=== PATIENT | male | born 1985 | race American Indian/Alaskan Native ===

== ENCOUNTER 2020-12-07 10:08 | Inpatient (IN) | payer OTHER ==
[2020-12-07 11:03] LABS: Bilirubin,Urine NEG (Negative); Blood,Urine NEG (Negative); Color,Urine Yellow (Yellow); Mucus,Urine 1+ /HPF; Protein,Urine <15 mg/dL mg/dL (Negative); Urobilinogen,Urine < 2.0 mg/dL (<2.0)
--- NOTE | 2020-12-07 12:19 | Emergency Department Report ---
Blank Doc - Documentation Documentation: 35-year-old male that presents with generalized abdominal pain with n/v. Stated has been vomiting bright red blood for 1 day. 1- This initial assessment/diagnostic orders/clinical plan/ treatment(s) is/are subject to change based on pt's health status, clinical progression and re- assessment by fellow clinical providers in the ED. Further treatment and workup at subsequent clinical provers discretion. Patient/guardians urged not to elope from ED as their condition may be serious if not clinically assessed and managed. 2-labs 3-UA
[2020-12-07] MEDS ORDERED: ONDANSETRON 4 MG/2 ML INJ IV ONE ×2 (12:54→14:51)
[2020-12-07] MEDS ORDERED: PANTOPRAZOLE 40 MG INJ IV ONE (12:54)
--- NOTE | 2020-12-07 13:11 | Emergency Department Report ---
HPI - General Chief Complaint: Abdominal Pain Time Seen by Provider: 12/07/20 12:15 - HPI HPI: This is a 35-year-old -Bel[place]an male presents to the emergency department with complaint of nausea, vomiting and generalized abdominal pain that has been going on since last night. The patient has noticed some blood in his vomit as well. Patient says that this set of symptoms has happened to him 2 times previously and he was diagnosed with "gastro something." He has not taken anything for his symptoms prior to presentation. He denies any fever, diarrhea, constipation, shortness of breath, chest pain. No recent travel or sick contacts at home. ED Past Medical Hx - Past Medical History Previous Medical History?: No - Surgical History Additional Surgical History: KNEE - Social History Smoking Status: Never Smoker Substance Use Type: Marijuana - Medications Home Medications: Home Medications Medication Instructions Recorded Confirmed Last Taken Type Ondansetron [Zofran Odt] 4 mg PO Q8HR PRN #15 tab.rapdis 12/07/20 Unknown Rx ED Review of Systems ROS: Stated complaint: VOMING BLOOD Other details as noted in HPI Comment: All other systems reviewed and negative Constitutional: denies: chills, fever Eyes: denies: eye pain, vision change ENT: denies: ear pain, throat pain Respiratory: denies: cough, shortness of breath Cardiovascular: denies: chest pain, palpitations Gastrointestinal: abdominal pain, nausea, vomiting Genitourinary: denies: dysuria, discharge Musculoskeletal: denies: joint swelling, arthralgia Skin: denies: rash, lesions Neurological: denies: headache, weakness Physical Exam - Physical Exam Vital Signs: Vital Signs 12/07/20 10:23 Temperature 98.5 F Pulse Rate 69 Respiratory 18 Rate Blood Pressure 116/80 O2 Sat by Pulse 99 Oximetry Physical Exam: GENERAL: Patient is actively retching. HENT: Normocephalic. Atraumatic. Patient has moist mucous membranes. EYES: Extraocular motions are intact. NECK: Supple. Trachea is midline. CHEST/LUNGS: Clear to auscultation. There is no respiratory distress noted. HEART/CARDIOVASCULAR: Regular. There is no tachycardia. There is no murmur. ABDOMEN: Abdomen is soft. Mild generalized abdominal tenderness to palpation. No guarding. Patient has normal bowel sounds. There is no abdominal distention. SKIN: Skin is warm and dry. NEURO: The patient is awake, alert, and oriented. The patient is cooperative. The patient has no focal neurologic deficits. Normal speech. MUSCULOSKELETAL: There is no tenderness or deformity. There is no limitation range of motion. ED Course Vital Signs 12/07/20 10:23 Temperature 98.5 F Pulse Rate 69 Respiratory 18 Rate Blood Pressure 116/80 O2 Sat by Pulse 99 Oximetry ED Medical Decision Making - Lab Data Result diagrams: 12/08/20 05:32 12/07/20 12:59 Lab Results 12/07/20 12/07/20 12/07/20 Range/Units 12:59 12:59 Unknown WBC 11.2 H (4.5-11.0) K/mm3 RBC 4.66 (3.65-5.03) M/mm3 Hgb 14.7 (11.8-15.2) gm/dl Hct 43.3 (35.5-45.6) % MCV 93 (84-94) fl MCH 32 (28-32) pg MCHC 34 (32-34) % RDW 12.7 L (13.2-15.2) % Plt Count 324 (140-440) K/mm3 Lymph % (Auto) 19.2 (13.4-35.0) % [place] % (Auto) 4.0 (0.0-7.3) % Eos % (Auto) 0.0 (0.0-4.3) % Baso % (Auto) 0.7 (0.0-1.8) % Lymph # (Auto) 2.2 (1.2-5.4) K/mm3 [place] # (Auto) 0.4 (0.0-0.8) K/mm3 Eos # (Auto) 0.0 (0.0-0.4) K/mm3 Baso # (Auto) 0.1 (0.0-0.1) K/mm3 Seg Neutrophils % 76.1 H (40.0-70.0) % Seg Neutrophils # 8.5 H (1.8-7.7) K/mm3 Sodium 137 (137-145) mmol/L Potassium 4.0 (3.6-5.0) mmol/L Chloride 99.7 (98-107) mmol/L Carbon Dioxide 21 L (22-30) mmol/L Anion Gap 20 mmol/L BUN 10 (9-20) mg/dL Creatinine 1.1 (0.8-1.3) mg/dL Estimated GFR > 60 ml/min BUN/Creatinine Ratio 9 % Glucose 153 H (75-100) mg/dL Calcium 9.1 (8.4-10.2) mg/dL Total Bilirubin 0.90 (0.1-1.2) mg/dL AST 26 (5-40) units/L ALT 21 (7-56) units/L Alkaline Phosphatase 70 (35-129) units/L Total Protein 7.6 (6.3-8.2) g/dL Albumin 4.7 (3.9-5) g/dL Albumin/Globulin Ratio 1.6 % Lipase 16 (13-60) units/L Urine Color Yellow (Yellow) Urine Turbidity Clear (Clear) Urine pH 6.0 (5.0-7.0) Ur Specific [place] 1.020 (1.003-1.030) Urine Protein <15 mg/dl (Negative) mg/dL Urine Glucose (UA) Neg (Negative) mg/dL Urine Ketones 20 (Negative) mg/dL Urine Blood Neg (Negative) Urine Nitrite Neg (Negative) Urine Bilirubin Neg (Negative) Urine Urobilinogen < 2.0 (<2.0) mg/dL Ur Leukocyte Esterase Neg (Negative) Urine WBC (Auto) 5.0 (0.0-6.0) /HPF Urine RBC (Auto) 2.0 (0.0-6.0) /HPF Urine Mucus 1+ /HPF - Radiology Data Radiology results: image reviewed interpreted by me: Abdominal x-ray shows nonspecific nonobstructive bowel gas. - Medical Decision Making This patient presents with nausea, vomiting and abdominal pain that started last night. He has a previous history of gastroparesis. Labs have been mostly unremarkable. Abdominal x-ray shows nonspecific nonobstructive bowel gas, and no free air. The patient presents with copious vomiting/retching. He was given 8 mg of Zofran and 10 mg of Reglan, as well as IV fluid resuscitation, but the patient continues to have nausea with vomiting. This was signed out to my colleague who tried other medications in an attempt to stop the nausea and vomiting and get t he patient to the point where he can orally rehydrate himself. However this appears unsuccessful and the patient was admitted to the hospital for further evaluation and treatment. Critical Care Time: No Critical care attestation.: If time is entered above; I have spent that time in minutes in the direct care of this critically ill patient, excluding procedure time. ED Disposition Clinical Impression: Gastroparesis Nausea & vomiting Qualifiers: Vomiting Intractability: intractable Abdominal pain Qualifiers: Abdominal location: generalized Qualified Code(s): R10.84 - Generalized abdominal pain Disposition: OP ADMIT IP TO THIS HOSP Is pt being admited?: Yes Condition: Stable
[2020-12-07] MEDS ORDERED: METOCLOPRAMIDE 10 MG/2 ML INJ IV ONE (13:12)
[2020-12-07] MEDS ORDERED: SODIUM CHLORIDE 0.9% 1000 ML 1,000 ML IV ONE (13:13)
[2020-12-07 13:31] LABS: Basophils # (Auto) 0.1 K/mm3 (0.0-0.1); Basophils % (Auto) 0.7 % (0.0-1.8); Hematocrit 43.3 % (35.5-45.6); Hemoglobin 14.7 gm/dl (11.8-15.2); Lymphocytes # (Auto) 2.2 K/mm3 (1.2-5.4); Lymphocytes % (Auto) 19.2 % (13.4-35.0); Mean Corpuscular HGB Conc 34 % (32-34); Mean Corpuscular Volume 93 fl (84-94); Monocytes # (Auto) 0.4 K/mm3 (0.0-0.8); Platelet Count 324 K/mm3 (140-440); Red Blood Count 4.66 M/mm3 (3.65-5.03); Red Cell Distribution Width 12.7 % (13.2-15.2)
[2020-12-07 13:49] LABS: Alanine Aminotransferase 21 units/L (7-56); Albumin 4.7 g/dL (3.9-5); BUN/Creatinine Ratio 9; Blood Urea Nitrogen 10 mg/dL (9-20); Calcium 9.1 mg/dL (8.4-10.2); Hemolysis Index 78
--- NOTE | 2020-12-07 14:06 | XRay Report ---
ABDOMEN 2 VIEW(S) INDICATION / CLINICAL INFORMATION: Abd pain. COMPARISON: None available. FINDINGS: TUBES / LINES: None. BOWEL GAS PATTERN/EXTRALUMINAL GAS: No significant abnormality. No pneumatosis or signs of free air. ADDITIONAL FINDINGS: No significant additional findings. IMPRESSION: 1. No acute findings. Signer Name: Jose Ochoa MD Signed: 12/07/2020 2:01 PM Workstation Name: [id number]
[2020-12-07] MEDS ORDERED: HALOPERIDOL LACTATE 5 MG/1 ML INJ IV ONE (16:16)
[2020-12-07] MEDS ORDERED: KETAMINE 500 MG/5 ML VIAL MDV IV ONE (19:22)
[2020-12-07] MEDS ORDERED: ACETAMINOPHEN 325 MG TAB PO PRN (22:47)
[2020-12-07] MEDS ORDERED: PROMETHAZINE 25 MG RECT SUPP PR PRN (22:48)
--- NOTE | 2020-12-07 22:53 | History and Physical Report ---
History of Present Illness Date of examination: 12/07/20 Date of admission: 12/07/2020 Chief complaint: intractable n/v, hematemesis, abdominal pain History of present illness: 35-year-old -Slovenian male who admits to recreational marijuana use with no significant past medical history [facility] with complaints intractable nausea vomiting, and abdominal pain. Patient states has been unable to keep anything down due to intractable nausea and vomiting x2 days. Endorses one episode of blood tinged emesis, and diarrhea x2 episodes. Additionally c omplains of generalized cramping 7/10 abdominal pain. Patient states he had similar symptoms before and was diagnosed with gastroparesis. During his previous episode his symptoms took approximately 1 week to resolve. He decided to come in the ED for further evaluation and treatment . Denies fever, chills, cough, hemoptysis, hematuria, melena, hematochezia, constipation, or recent sick contacts. Past History Past Medical History: other (Denies past medical history) Past Surgical History: Other (Knee surgery) Social history: single, Lives alone (cousin), smoking (Marijuana) Family history: other (Denies family medical history) Medications and Allergies Allergies Allergy/AdvReac Type Severity Reaction Status Date / Time NSAIDS (Non-Steroidal AdvReac Unknown Verified 12/07/20 10:22 Anti-Inflamma Home Medications Medication Instructions Recorded Confirmed Last Taken Type Ondansetron [Zofran Odt] 4 mg PO Q8HR PRN #15 tab.rapdis 12/07/20 Unknown Rx Active Meds: Active Medications Acetaminophen (Acetaminophen 325 Mg Tab) 650 mg PO Q4H PRN PRN Reason: Pain MILD(1-3)/Fever >100.5/JOSHI Dextrose/Sodium Chloride (D5/0.45ns) 1,000 mls @ 100 mls/hr IV DIRECT BHAVIK Stop: 12/08/20 12:00 Metoclopramide HCl (Metoclopramide 10 Mg/2 Ml Inj) 10 mg IV Q6H PRN PRN Reason: Nausea And Vomiting Morphine Sulfate (Morphine 2 Mg/1 Ml Inj) 2 mg IV Q3H PRN PRN Reason: Pain, Moderate (4-6) Ondansetron HCl (Ondansetron 4 Mg/2 Ml Inj) 4 mg IV Q6H PRN PRN Reason: Nausea And Vomiting Promethazine HCl (Promethazine 25 Mg Rect Supp) 25 mg [place] Q6H PRN PRN Reason: N/V IF NPO AND NO IV ACCESS Sodium Chloride (Sodium Chloride 0.9% 10 Ml Flush Syringe) 10 ml IV BID BHAVIK Sodium Chloride (Sodium Chloride 0.9% 10 Ml Flush Syringe) 10 ml IV PRN PRN PRN Reason: LINE FLUSH Review of Systems All systems: negative (As noted in HPI) Exam - Physical Exam Narrative exam: Physical exam General appearance: Present: No acute distress, alert and oriented 3, well- nourished, adult -Slovenian male - EENT Eyes: Present: PERRL, EOM intact ENT: hearing intact, normal dentition - Neck Neck: Present: supple, normal ROM - Respiratory Respiratory effort: Non-labored Respiratory: Clear throughout - Cardiovascular Heart rate:80(bpm) Rhythm: Sinus Heart Sounds: Present: S1 & S2. Absent: rub, click - Extremities Extremities: no ischemia, pulses intact, - Peripheral Assessment Peripheral Pulses: within normal limits - Abdominal General gastrointestinal: soft, non-tender, normal bowel sounds - Integumentary Integumentary: Present: warm, dry - Musculoskeletal Musculoskeletal: Able to move all extremities, normal gait -Neurological Neurological: CN II-XII intact - Psychiatric Psychiatric: cooperative - Constitutional Vitals: Temp Pulse Resp BP Pulse Ox 98.5 F 63 16 136/79 100 12/07/20 10:23 12/07/20 18:36 12/07/20 18:36 12/07/20 18:36 12/07/20 18:36 Results - Labs CBC & Chem 7: 12/07/20 12:59 12/07/20 12:59 Labs: Laboratory Last Values WBC 11.2 K/mm3 (4.5-11.0) H 12/07/20 12:59 RBC 4.66 M/mm3 (3.65-5.03) 12/07/20 12:59 Hgb 14.7 gm/dl (11.8-15.2) 12/07/20 12:59 Hct 43.3 % (35.5-45.6) 12/07/20 12:59 MCV 93 fl (84-94) 12/07/20 12:59 MCH 32 pg (28-32) 12/07/20 12:59 MCHC 34 % (32-34) 12/07/20 12:59 RDW 12.7 % (13.2-15.2) L 12/07/20 12:59 Plt Count 324 K/mm3 (140-440) 12/07/20 12:59 Lymph % (Auto) 19.2 % (13.4-35.0) 12/07/20 12:59 [place] % (Auto) 4.0 % (0.0-7.3) 12/07/20 12:59 Eos % (Auto) 0.0 % (0.0-4.3) 12/07/20 12:59 Baso % (Auto) 0.7 % (0.0-1.8) 12/07/20 12:59 Lymph # (Auto) 2.2 K/mm3 (1.2-5.4) 12/07/20 12:59 [place] # (Auto) 0.4 K/mm3 (0.0-0.8) 12/07/20 12:59 Eos # (Auto) 0.0 K/mm3 (0.0-0.4) 12/07/20 12:59 Baso # (Auto) 0.1 K/mm3 (0.0-0.1) 12/07/20 12:59 Seg Neutrophils % 76.1 % (40.0-70.0) H 12/07/20 12:59 Seg Neutrophils # 8.5 K/mm3 (1.8-7.7) H 12/07/20 12:59 Sodium 137 mmol/L (137-145) 12/07/20 12:59 Potassium 4.0 mmol/L (3.6-5.0) 12/07/20 12:59 Chloride 99.7 mmol/L (98-107) 12/07/20 12:59 Carbon Dioxide 21 mmol/L (22-30) L 12/07/20 12:59 Anion Gap 20 mmol/L 12/07/20 12:59 BUN 10 mg/dL (9-20) 12/07/20 12:59 Creatinine 1.1 mg/dL (0.8-1.3) 12/07/20 12:59 Estimated GFR > 60 ml/min 12/07/20 12:59 BUN/Creatinine Ratio 9 % 12/07/20 12:59 Glucose 153 mg/dL (75-100) H 12/07/20 12:59 Calcium 9.1 mg/dL (8.4-10.2) 12/07/20 12:59 Total Bilirubin 0.90 mg/dL (0.1-1.2) 12/07/20 12:59 AST 26 units/L (5-40) 12/07/20 12:59 ALT 21 units/L (7-56) 12/07/20 12:59 Alkaline Phosphatase 70 units/L (35-129) 12/07/20 12:59 Total Protein 7.6 g/dL (6.3-8.2) 12/07/20 12:59 Albumin 4.7 g/dL (3.9-5) 12/07/20 12:59 Albumin/Globulin Ratio 1.6 % 12/07/20 12:59 Lipase 16 units/L (13-60) 12/07/20 12:59 Urine Color Yellow (Yellow) 12/07/20 Unknown Urine Turbidity Clear (Clear) 12/07/20 Unknown Urine pH 6.0 (5.0-7.0) 12/07/20 Unknown Ur Specific [place] 1.020 (1.003-1.030) 12/07/20 Unknown Urine Protein <15 mg/dl mg/dL (Negative) 12/07/20 Unknown Urine Glucose (UA) Neg mg/dL (Negative) 12/07/20 Unknown Urine Ketones 20 mg/dL (Negative) 12/07/20 Unknown Urine Blood Neg (Negative) 12/07/20 Unknown Urine Nitrite Neg (Negative) 12/07/20 Unknown Urine Bilirubin Neg (Negative) 12/07/20 Unknown Urine Urobilinogen < 2.0 mg/dL (<2.0) 12/07/20 Unknown Ur Leukocyte Esterase Neg (Negative) 12/07/20 Unknown Urine WBC (Auto) 5.0 /HPF (0.0-6.0) 12/07/20 Unknown Urine RBC (Auto) 2.0 /HPF (0.0-6.0) 12/07/20 Unknown Urine Mucus 1+ /HPF 12/07/20 Unknown - Diagnostic Impressions Diagnostic Impressions: Abdominal XR: FINDINGS: TUBES / LINES: None. BOWEL GAS PATTERN/EXTRALUMINAL GAS: No significant abnormality. No pneumatosis or signs of free air. ADDITIONAL FINDINGS: No significant additional findings. IMPRESSION: 1. No acute findings. Assessment and Plan Assessment and plan: Intractable nausea and vomiting -C/o n/v x2 days -NPO, advance as tolerated -IVF -On antiemetics -Supportive care Gastroparesis -Reports history of gastroparesis -If no improvement in the next 24 hours may consider starting antibiotics and GI consult -Abdominal x-ray negative -On antiemetics Acute abdominal pain -Likely due to gastroparesis -Supportive care History of marijuana use -??marijuana induced hyperemesis -Reports quit smoking marijuana 4 days ago -UDS pending -Counseled for cessation Leukocytosis -Mild @11.2 -?? Inflammatory response -Cultures pending -Hold off on antibiotics for now, as stated above may consider starting if no improvement with gastroparesis in the next 24 hours DVT & GI PPX -on Protonix -SCD's VTE prophylaxis?: Mechanical Plan of care discussed with patient/family: Yes
[2020-12-07] MEDS ORDERED: D5W/0.45% NACL 1,000 ML IV SCH (23:00)
[2020-12-08] MEDS: ONDANSETRON 4 MG/2 ML INJ IV PRN ×3 (05:06→21:51)
[2020-12-08] MEDS: METOCLOPRAMIDE 10 MG/2 ML INJ IV PRN ×2 (05:06→17:53)
[2020-12-08 06:04] LABS: Basophils % (Auto) 0.1 % (0.0-1.8); Hematocrit 40.7 % (35.5-45.6); Hemoglobin 13.4 gm/dl (11.8-15.2); Lymphocytes % (Auto) 6.2 % (13.4-35.0); Mean Corpuscular HGB Conc 33 % (32-34); Mean Corpuscular Volume 92 fl (84-94); Monocytes # (Auto) 1.1 K/mm3 (0.0-0.8); Monocytes % (Auto) 6.5 % (0.0-7.3); Platelet Count 299 K/mm3 (140-440); Red Blood Count 4.42 M/mm3 (3.65-5.03); Red Cell Distribution Width 12.3 % (13.2-15.2)
[2020-12-08] MEDS: PANTOPRAZOLE 40 MG INJ IV SCH ×2 (10:50→21:51)
--- NOTE | 2020-12-08 14:04 | Progress Note ---
Subjective Date of service: 12/08/20 Interval history: intractable n/v, hematemesis, abdominal pain History of present illness: 35-year-old -Turkmen male who admits to recreational marijuana use with no significant past medical history presents to [facility] ED with complaints intractable nausea vomiting, and abdominal pain. Patient states has been unable to keep anything down due to intractable nausea and vomiting x2 days. Endorses one episode of blood tinged emesis, and diarrhea x2 episodes. Additionally complains of generalized cramping 7/10 abdominal pain. Patient states he had similar symptoms before and was diagnosed with gastroparesis. During his previous episode his symptoms took approximately 1 week to resolve. He decided to come in the ED for further evaluation and treatment . 12/08 patient is alert and oriented and states that his nausea and vomiting is better. Last emesis at 3 AM today. We will start on clear liquids and advance as tolerated. Lab results reviewed. Blood cultures results pending. Has a low-grade temp of 99.2 denies chest pain, shortness of breath, fever or chills. Denies abdominal pain or dysuria. Assessment and plan: Intractable nausea and vomiting -Improving/no further episodes since late last night Start on clear liquids -IVF -On antiemetics -Supportive care Gastroparesis -Reports history of gastroparesis -Continue Reglan IV as needed -Abdominal x-ray negative -On antiemetics Acute abdominal pain Resolved -Supportive care History of marijuana use -??marijuana induced hyperemesis -Reports quit smoking marijuana 4 days ago -UDS pending -Counseled for cessation Leukocytosis -WBC count increased from 11.2-16.7 this morning -?? SIRS versus sepsis -Blood cultures results pending -Check lactic acid levels and procalcitonin -We will start the patient on IV antibiotic empirically as the patient also has low-grade temp Hyperglycemia A1c 4.4 DVT & GI PPX -on Protonix -SCD's Objective - Constitutional Vitals: Vital Signs - 12hr 12/08/20 12/08/20 12/08/20 03:30 04:47 05:18 Temperature 99.2 F Pulse Rate 68 54 L 54 L Respiratory 16 18 Rate Blood Pressure 137/91 Blood Pressure 138/71 [Left] O2 Sat by Pulse 100 96 Oximetry 12/08/20 12/08/20 12/08/20 08:50 08:56 12:06 Temperature 99.3 F 98.7 F Pulse Rate 69 83 Respiratory 18 18 Rate Blood Pressure 142/87 147/95 Blood Pressure [Left] O2 Sat by Pulse 99 98 98 Oximetry 12/08/20 13:00 Temperature Pulse Rate 61 Respiratory Rate Blood Pressure Blood Pressure [Left] O2 Sat by Pulse Oximetry General appearance: Present: well-nourished - EENT Eyes: PERRL, EOM intact ENT: hearing intact, clear oral mucosa - Neck Neck: supple, normal ROM - Respiratory Respiratory effort: normal Respiratory: bilateral: CTA - Cardiovascular Rhythm: regular Heart Sounds: Present: S1 & S2 Extremities: No edema - Gastrointestinal General gastrointestinal: Present: soft, non-tender Rectal Exam: deferred - Genitourinary Male genitourinary: deferred - Integumentary Integumentary: clear - Musculoskeletal Musculoskeletal: strength equal bilaterally - Neurologic Neurologic: no focal deficits - Psychiatric Psychiatric: appropriate mood/affect - Labs CBC & Chem 7: 12/08/20 05:32 12/07/20 12:59 Labs: Abnormal lab results 12/07/20 12/08/20 Range/Units 12:59 05:32 WBC 16.7 H (4.5-11.0) K/mm3 RDW 12.3 L (13.2-15.2) % Lymph % (Auto) 6.2 L (13.4-35.0) % Lymph # (Auto) 1.0 L (1.2-5.4) K/mm3 [place] # (Auto) 1.1 H (0.0-0.8) K/mm3 Seg Neutrophils % 87.2 H (40.0-70.0) % Seg Neutrophils # 14.6 H (1.8-7.7) K/mm3 Carbon Dioxide 21 L (22-30) mmol/L Glucose 153 H (75-100) mg/dL
[2020-12-08] MEDS: D5W/0.45% NACL 1,000 ML IV SCH (17:54)
[2020-12-08] MEDS: MORPHINE 2 MG/1 ML INJ IV PRN (21:51)
[2020-12-09] MEDS: MORPHINE 2 MG/1 ML INJ IV PRN ×3 (01:30→18:41)
[2020-12-09 05:56] LABS: Basophils % (Auto) 0.2 % (0.0-1.8); Hematocrit 39.9 % (35.5-45.6); Hemoglobin 13.5 gm/dl (11.8-15.2); Lymphocytes # (Auto) 1.5 K/mm3 (1.2-5.4); Mean Corpuscular HGB Conc 34 % (32-34); Mean Corpuscular Volume 93 fl (84-94); Monocytes # (Auto) 1.2 K/mm3 (0.0-0.8); Monocytes % (Auto) 8.1 % (0.0-7.3); Platelet Count 273 K/mm3 (140-440); Red Blood Count 4.31 M/mm3 (3.65-5.03); Red Cell Distribution Width 12.7 % (13.2-15.2)
[2020-12-09 06:12] LABS: BUN/Creatinine Ratio 11; Blood Urea Nitrogen 12 mg/dL (9-20); Calcium 8.9 mg/dL (8.4-10.2); Hemolysis Index 4
[2020-12-09] MEDS ORDERED: POTASSIUM CHLORIDE ER 20 MEQ TAB PO SCH (08:30)
[2020-12-09] MEDS: PANTOPRAZOLE 40 MG INJ IV SCH (09:41)
[2020-12-09] MEDS: METOCLOPRAMIDE 10 MG/2 ML INJ IV PRN (09:41)
[2020-12-09] MEDS: D5W/0.45% NACL 1,000 ML IV SCH (09:47)
--- NOTE | 2020-12-09 09:49 | Progress Note ---
Subjective Date of service: 12/09/20 Interval history: intractable n/v, hematemesis, abdominal pain History of present illness: 35-year-old -[place] male who admits to recreational marijuana use with no significant past medical history presents to [facility] ED with complaints intractable nausea vomiting, and abdominal pain. Patient states has been unable to keep anything down due to intractable nausea and vomiting x2 days. Endorses one episode of blood tinged emesis, and diarrhea x2 episodes. Additionally complains of generalized cramping 7/10 abdominal pain. Patient states he had similar symptoms before and was diagnosed with gastroparesis. During his previous episode his symptoms took approximately 1 week to resolve. He decided to come in the ED for further evaluation and treatment . 12/08 patient is alert and oriented and states that his nausea and vomiting is better. Last emesis at 3 AM today. We will start on clear liquids and advance as tolerated. Lab results reviewed. Blood cultures results pending. Has a low-grade temp of 99.2 denies chest pain, shortness of breath, fever or chills. Denies abdominal pain or dysuria. 12/09 patient is alert and oriented. Complains of persistent nausea and vomiting. Also complains of nonexertional chest pain across the chest. Denies fever or chills. Denies shortness of breath or exertional chest pain. Lab results aureliano carcamo Assessment and plan: Intractable nausea and vomiting -We will request GI consult -We will order nuclear medicine gastric emptying scan Continue clear liquids -IVF -On antiemetics -Supportive care Gastroparesis -Reports history of gastroparesis -Continue Reglan IV as needed -Abdominal x-ray negative -On antiemetics -We will order nuclear medicine gastric emptying scan Acute abdominal pain Resolved -Supportive care History of marijuana use -??marijuana induced hyperemesis -Reports quit smoking marijuana 4 days ago -UDS pending -Counseled for cessation Leukocytosis -WBC count increased from 11.2-16.7 > 15 k this morning -?? SIRS versus sepsis -Blood cultures results -no growth in 24 hours - lactic acid levels and procalcitonin ordered-results pending -Continue empiric IV antibiotic empirically as the patient also has low-grade temp Hyperglycemia A1c 4.4 DVT & GI PPX -on Protonix -SCD's Objective - Constitutional Vitals: Vital Signs - 12hr 12/08/20 12/08/20 12/09/20 21:51 22:21 01:17 Temperature 98.0 F Pulse Rate 66 Respiratory 20 18 18 Rate Blood Pressure 135/89 O2 Sat by Pulse 98 Oximetry 12/09/20 12/09/20 12/09/20 01:30 03:53 07:37 Temperature 98.6 F Pulse Rate 82 82 Respiratory 20 18 Rate Blood Pressure 146/92 O2 Sat by Pulse 100 Oximetry 12/09/20 07:50 Temperature 98.2 F Pulse Rate 63 Respiratory 20 Rate Blood Pressure 122/93 O2 Sat by Pulse 98 Oximetry General appearance: Present: no acute distress, well-nourished - EENT Eyes: PERRL, EOM intact ENT: hearing intact - Neck Neck: supple, normal ROM - Respiratory Respiratory effort: normal Respiratory: bilateral: CTA - Cardiovascular Rhythm: regular Heart Sounds: Present: S1 & S2 Extremities: No edema - Gastrointestinal General gastrointestinal: Present: soft, non-tender Rectal Exam: deferred - Genitourinary Male genitourinary: deferred - Musculoskeletal Musculoskeletal: strength equal bilaterally - Neurologic Neurologic: no focal deficits, moves all extremities - Psychiatric Psychiatric: appropriate mood/affect - Labs CBC & Chem 7: 12/09/20 05:12 12/09/20 05:12 Labs: Abnormal lab results 12/08/20 12/09/20 12/09/20 Range/Units 13:07 05:12 05:12 WBC 15.0 H (4.5-11.0) K/mm3 RDW 12.7 L (13.2-15.2) % Lymph % (Auto) 10.0 L (13.4-35.0) % [place] % (Auto) 8.1 H (0.0-7.3) % [place] # (Auto) 1.2 H (0.0-0.8) K/mm3 Seg Neutrophils % 81.7 H (40.0-70.0) % Seg Neutrophils # 12.2 H (1.8-7.7) K/mm3 Sodium 136 L (137-145) mmol/L Potassium 3.5 L (3.6-5.0) mmol/L Chloride 96.4 L (98-107) mmol/L Glucose 121 H (75-100) mg/dL Lactic Acid 2.30 H* (0.7-2.0) mmol/L
[2020-12-09] MEDS: ONDANSETRON 4 MG/2 ML INJ IV PRN ×2 (15:38→21:24)
--- NOTE | 2020-12-09 16:47 | Gastroenterology Consultation ---
History of Present Illness - Reason for Consult Consult date: 12/09/20 nausea/vomiting Requesting physician: ALEXSANDRA MACEDO - History of Present Illness This is a 35 yo male with recreational marijauna use admitted on 12/07/2020 for intractable nausea/vomiting x 2 days. GI consulted for N/V. Patient reports having similar episodes in the past with admission at OSH in 2018 and symptoms could last for about 1 week. Was told to stop marijauna in the past. Last use 1 week ago. Reports epigastric pain along with diarrhea x 2 days. No blood in the stool or melena. No prior EGD or colonoscopy. Work up so far with normal lipase, normal KUB. Patient has been on reglan and zofran prn and placed on clear liquids. Reports feeling slightly improved today and keep clears down. medication list reviewed. Past History Past Medical History: other (Denies past medical history) Past Surgical History: Other (Knee surgery) Social history: single, Lives alone (cousin), smoking (Marijuana) Family history: other (Denies family medical history) Medications and Allergies Allergies Allergy/AdvReac Type Severity Reaction Status Date / Time NSAIDS (Non-Steroidal AdvReac Unknown Verified 12/07/20 10:22 Anti-Inflamma Home Medications Medication Instructions Recorded Confirmed Last Taken Type Ondansetron [Zofran Odt] 4 mg PO Q8HR PRN #15 tab.rapdis 12/07/20 Unknown Rx Active Meds: Active Medications Acetaminophen (Acetaminophen 325 Mg Tab) 650 mg PO Q4H PRN PRN Reason: Pain MILD(1-3)/Fever >100.5/JOSHI Levofloxacin/Dextrose (Levaquin 500mg/100ml) 500 mg in 100 mls @ 100 mls/hr IV Q24H BHAVIK; Protocol Last Admin: 12/09/20 09:47 Dose: 100 mls/hr Documented by: Dextrose/Sodium Chloride (D5/0.45ns) 1,000 mls @ 100 mls/hr IV DIRECT BHAVIK Last Admin: 12/09/20 09:47 Dose: 100 mls/hr Documented by: Metoclopramide HCl (Metoclopramide 10 Mg/2 Ml Inj) 10 mg IV Q6H PRN PRN Reason: Nausea And Vomiting Last Admin: 12/09/20 09:41 Dose: 10 mg Documented by: Ondansetron HCl (Ondansetron 4 Mg/2 Ml Inj) 4 mg IV Q6H PRN PRN Reason: Nausea And Vomiting Last Admin: 12/09/20 15:38 Dose: 4 mg Documented by: Pantoprazole Sodium (Pantoprazole 40 Mg Inj) 40 mg IV DAILY [facility] Promethazine HCl (Promethazine 25 Mg Rect Supp) 25 mg ID Q6H PRN PRN Reason: N/V IF NPO AND NO IV ACCESS Sodium Chloride (Sodium Chloride 0.9% 10 Ml Flush Syringe) 10 ml IV BID [facility] Last Admin: 12/09/20 09:41 Dose: 10 ml Documented by: Sodium Chloride (Sodium Chloride 0.9% 10 Ml Flush Syringe) 10 ml IV PRN PRN PRN Reason: LINE FLUSH Last Admin: 12/08/20 05:06 Dose: 10 ml Documented by: Review of Systems - Review of Systems All systems: negative Constitutional: no weight loss, no weight gain Cardiovascular: no chest pain Gastrointestinal: abdominal pain, nausea, vomiting, loss of appetite, early satiety, no constipation, no hematemesis, no coffee ground emesis, no hematochezia Neurological: weakness Psychiatric: no anxiety Endocrine: no cold intolerance Hematologic/Lymphatic: no easy bruising Allergic/Immunologic: no wheezing Exam - Constitutional Vital Signs: Temp Pulse Resp BP Pulse Ox 98.2 F 63 20 122/93 98 12/09/20 07:50 12/09/20 07:50 12/09/20 07:50 12/09/20 07:50 12/09/20 07:50 General appearance: no acute distress - EENT ENT: hearing intact - Neck Neck: supple - Respiratory Respiratory effort: normal - Cardiovascular Rhythm: regular Heart Sounds: Present: S1 & S2 - Gastrointestinal General gastrointestinal: Present: soft, non-tender, non-distended - Integumentary Integumentary: Present: clear, warm - Neurologic Neurological: alert and oriented x3 - Labs CBC & Chem 7: 12/09/20 05:12 12/09/20 05:12 Lab Results: Laboratory Results - last 24 hr 12/08/20 12/09/20 12/09/20 15:14 05:12 05:12 WBC 15.0 H RBC 4.31 Hgb 13.5 Hct 39.9 MCV 93 MCH 31 MCHC 34 RDW 12.7 L Plt Count 273 Lymph % (Auto) 10.0 L [place] % (Auto) 8.1 H Eos % (Auto) 0.0 Baso % (Auto) 0.2 Lymph # (Auto) 1.5 [place] # (Auto) 1.2 H Eos # (Auto) 0.0 Baso # (Auto) 0.0 Seg Neutrophils % 81.7 H Seg Neutrophils # 12.2 H Sodium Potassium Chloride Carbon Dioxide Anion Gap BUN Creatinine Estimated GFR BUN/Creatinine Ratio Glucose Lactic Acid 1.70 Calcium Procalcitonin < 0.05 12/09/20 05:12 WBC RBC Hgb Hct MCV MCH MCHC RDW Plt Count Lymph % (Auto) [place] % (Auto) Eos % (Auto) Baso % (Auto) Lymph # (Auto) [place] # (Auto) Eos # (Auto) Baso # (Auto) Seg Neutrophils % Seg Neutrophils # Sodium 136 L Potassium 3.5 L Chloride 96.4 L Carbon Dioxide 27 Anion Gap 16 BUN 12 Creatinine 1.1 Estimated GFR > 60 BUN/Creatinine Ratio 11 Glucose 121 H Lactic Acid Calcium 8.9 Procalcitonin Assessment and Plan This is a 35 yo male with recreational marijauna use admitted on 12/07/2020 for intractable nausea/vomiting x 2 days. GI consulted for N/V. # Nausea/vomiting - ddx including marijauna induced hyperemesis, cyclic vomiting syndrome, gastroparesis, GERD vs biliary etiology. - normal lipase and LFTs - keep clears today - cont with reglan and zofran prn - add protonix - advance diet slowly - advised to quit marijauna - if persistent nausea/vomiting, plan for EGD on Friday. - Patient Problems (1) Abdominal pain Current Visit: Yes Status: Acute Qualifiers: Abdominal location: generalized Qualified Code(s): R10.84 - Generalized abdominal pain (2) Nausea & vomiting Current Visit: Yes Status: Acute Qualifiers: Vomiting Intractability: intractable
[2020-12-10] MEDS ORDERED: ALUM-MAG HYDROXIDE-SIMETHICONE 200-200-20MG/5ML ORAL LIQD 30 ML PO ONE (00:21)
[2020-12-10] MEDS: MORPHINE 2 MG/1 ML INJ IV PRN ×2 (00:46→14:32)
[2020-12-10] MEDS: METOCLOPRAMIDE 10 MG/2 ML INJ IV PRN (00:46)
[2020-12-10] MEDS: D5W/0.45% NACL 1,000 ML IV SCH (03:49)
[2020-12-10] MEDS: ONDANSETRON 4 MG/2 ML INJ IV PRN (03:54)
[2020-12-10 06:45] LABS: Hematocrit 40.3 % (35.5-45.6); Hemoglobin 13.9 gm/dl (11.8-15.2); Mean Corpuscular HGB Conc 35 % (32-34); Mean Corpuscular Volume 91 fl (84-94); Platelet Count 295 K/mm3 (140-440); Red Blood Count 4.43 M/mm3 (3.65-5.03); Red Cell Distribution Width 12.2 % (13.2-15.2)
[2020-12-10 07:32] LABS: BUN/Creatinine Ratio 7; Blood Urea Nitrogen 8 mg/dL (9-20); Calcium 8.6 mg/dL (8.4-10.2); Hemolysis Index 0
[2020-12-10] MEDS: PANTOPRAZOLE 40 MG INJ IV SCH (10:11)
[2020-12-10] MEDS: POTASSIUM CHLORIDE 10 MEQ 10 MEQ/100 ML BAG IV SCH ×4 (10:11→14:31)
--- NOTE | 2020-12-10 11:24 | Progress Note ---
Subjective Date of service: 12/10/20 Interval history: intractable n/v, hematemesis, abdominal pain History of present illness: 35-year-old -[place] male who admits to recreational marijuana use with no significant past medical history presents to [facility] ED with complaints intractable nausea vomiting, and abdominal pain. Patient states has been unable to keep anything down due to intractable nausea and vomiting x2 days. Endorses one episode of blood tinged emesis, and diarrhea x2 episodes. Additionally complains of generalized cramping 7/10 abdominal pain. Patient states he had similar symptoms before and was diagnosed with gastroparesis. During his previous episode his symptoms took approximately 1 week to resolve. He decided to come in the ED for further evaluation and treatment . 12/08 patient is alert and oriented and states that his nausea and vomiting is better. Last emesis at 3 AM today. We will start on clear liquids and advance as tolerated. Lab results reviewed. Blood cultures results pending. Has a low-grade temp of 99.2 denies chest pain, shortness of breath, fever or chills. Denies abdominal pain or dysuria. 12/09 patient is alert and oriented. Complains of persistent nausea and vomiting. Also complains of nonexertional chest pain across the chest. Denies fever or chills. Denies shortness of breath or exertional chest pain. Lab results aureliano carcamo Assessment and plan: Intractable nausea and vomiting - GI consulted, -Reviewed GI note and discussed with Dr. Romo - will cancel nuclear medicine gastric emptying scan for now/possibly EGD on Friday as the patient continues to feel nauseous and intermittently throwing up although he says he feels better today Continue clear liquids -IVF -Continue antiemetics as needed -Clear liquids Gastroparesis -Patient reports history of gastroparesis -Continue Reglan IV as needed -Abdominal x-ray negative -On antiemetics Acute abdominal pain Resolved -Supportive care History of marijuana use -??marijuana induced hyperemesis -Reports quit smoking marijuana 4 days prior to admission -UDS pending -Counseled for cessation Leukocytosis -WBC count increased from 11.2-16.7 > 15 k > 14.9 this morning -?? SIRS versus sepsis -Blood cultures results -no growth in 24 hours - lactic acid levels and procalcitonin results reviewed -Continue empiric IV antibiotic empirically as the patient also has low-grade temp Hyperglycemia A1c 4.4 DVT & GI PPX -on Protonix -SCD's Objective - Constitutional Vitals: Vital Signs - 12hr 12/10/20 12/10/20 12/10/20 00:14 04:53 08:53 Temperature 97.8 F 98.0 F 98.0 F Pulse Rate 56 L 80 66 Respiratory 18 18 18 Rate Blood Pressure 146/101 120/79 138/93 O2 Sat by Pulse 98 96 94 Oximetry General appearance: Present: no acute distress, well-nourished - EENT Eyes: PERRL, EOM intact ENT: hearing intact - Neck Neck: supple, normal ROM - Respiratory Respiratory effort: normal Respiratory: bilateral: CTA - Cardiovascular Rhythm: regular Heart Sounds: Present: S1 & S2 Extremities: No edema - Gastrointestinal General gastrointestinal: Present: soft, non-tender Rectal Exam: deferred - Genitourinary Male genitourinary: deferred - Integumentary Integumentary: clear - Musculoskeletal Musculoskeletal: strength equal bilaterally - Neurologic Neurologic: moves all extremities - Psychiatric Psychiatric: appropriate mood/affect - Labs CBC & Chem 7: 12/10/20 05:21 12/10/20 05:21 Labs: Abnormal lab results 12/10/20 12/10/20 12/10/20 Range/Units 05:21 05:21 05:21 WBC 14.9 H (4.5-11.0) K/mm3 MCHC 35 H (32-34) % RDW 12.2 L (13.2-15.2) % Sodium 133 L (137-145) mmol/L Potassium 2.8 L* (3.6-5.0) mmol/L Chloride 94.2 L (98-107) mmol/L BUN 8 L (9-20) mg/dL Glucose 101 H (75-100) mg/dL Magnesium 1.40 L (1.7-2.3) mg/dL
[2020-12-10] MEDS ORDERED: MAGNESIUM SULFATE 1 GM in SODIUM CHLORIDE 0.9% 50 ML IV ONE (14:00)
--- NOTE | 2020-12-10 16:40 | Gastroenterology Progress Note ---
Assessment and Plan This is a 35 yo male with recreational marijauna use admitted on 12/07/2020 for intractable nausea/vomiting x 2 days. GI consulted for N/V. # Nausea/vomiting - ddx including marijauna induced hyperemesis, cyclic vomiting syndrome, gastrop aresis, GERD vs biliary etiology. - normal lipase and LFTs - keep clears but persistent nausea/vomiting. - cont with reglan and zofran prn - cont with protonix - advance diet slowly - advised to quit marijauna - will plan for EGD tomorrow. keep NPO MN. - if EGD negative, may need HIDA scan vs GES. - Patient Problems (1) Abdominal pain Current Visit: Yes Status: Acute Qualifiers: Abdominal location: generalized Qualified Code(s): R10.84 - Generalized abdominal pain (2) Nausea & vomiting Current Visit: Yes Status: Acute Qualifiers: Vomiting Intractability: intractable Subjective Date of service: 12/10/20 Interval history: patient reports persistent nausea and vomiting. Epigastric pain. Per nursing, patient is spitting up but not vomiting. Objective - Constitutional Vitals: Temp Pulse Resp BP Pulse Ox 98.0 F 62 18 138/93 94 12/10/20 08:53 12/10/20 12:00 12/10/20 08:53 12/10/20 08:53 12/10/20 08:53 General appearance: no acute distress - EENT Eyes: EOM intact ENT: hearing intact - Respiratory Respiratory effort: normal - Cardiovascular Rhythm: regular Heart Sounds: Present: S1 & S2 - Gastrointestinal General gastrointestinal: Present: soft, non-tender, non-distended - Integumentary Integumentary: Present: clear, warm - Neurologic Neurological: alert and oriented x3 - Labs CBC & Chem 7: 12/10/20 05:21 12/10/20 05:21 Labs: Laboratory Results - last 24 hr 12/10/20 12/10/20 12/10/20 05:21 05:21 05:21 WBC 14.9 H RBC 4.43 Hgb 13.9 Hct 40.3 MCV 91 MCH 32 MCHC 35 H RDW 12.2 L Plt Count 295 Sodium 133 L Potassium 2.8 L* Chloride 94.2 L Carbon Dioxide 28 Anion Gap 14 BUN 8 L Creatinine 1.1 Estimated GFR > 60 BUN/Creatinine Ratio 7 Glucose 101 H Calcium 8.6 Magnesium 1.40 L
[2020-12-11] MEDS: D5W/0.45% NACL 1,000 ML IV SCH (01:05)
[2020-12-11] MEDS: METOCLOPRAMIDE 10 MG/2 ML INJ IV PRN ×2 (04:44→16:33)
[2020-12-11] MEDS: MORPHINE 2 MG/1 ML INJ IV PRN ×4 (04:49→16:42)
[2020-12-11 06:56] LABS: BUN/Creatinine Ratio 8; Blood Urea Nitrogen 8 mg/dL (9-20); Calcium 8.2 mg/dL (8.4-10.2); Hemolysis Index 18
[2020-12-11] MEDS: POTASSIUM CHLORIDE 10 MEQ 10 MEQ/100 ML BAG IV SCH ×6 (09:04→17:51)
[2020-12-11] MEDS: PANTOPRAZOLE 40 MG INJ IV SCH (09:16)
[2020-12-11] MEDS: ONDANSETRON 4 MG/2 ML INJ IV PRN (09:16)
--- NOTE | 2020-12-11 11:27 | Progress Note ---
Assessment and Plan Assessment and plan: #Intractable nausea and vomiting -Continue clear liquids -Continue reglan -Plan for EGD per GI> will need GES or HIDA scan if negative. -GI recs appreciated. #Acute abdominal pain Resolved -Supportive care #History of marijuana use -??marijuana induced hyperemesis -Reports quit smoking marijuana 4 days prior to admission -Counseling provided #Leukocytosis -Likely SIRS. -Blood cultures results -no growth in 24 hours -Lactic acid levels and procalcitonin results reviewed -Complete antibiotics. #Hyperglycemia A1c 4.4 #DVT & GI PPX -on Protonix -SCD's History Interval history: 35-year-old -[place] male who admits to recreational marijuana use with no significant past medical history presents to [facility] ED with complaints intractable nausea vomiting, and abdominal pain. Patient states has been unable to keep anything down due to intractable nausea and vomiting x2 days. Endorses one episode of blood tinged emesis, and diarrhea x2 episodes. Additionally complains of generalized cramping 02/10 abdominal pain. Patient states he had similar symptoms before and was diagnosed with gastroparesis. During his previous episode his symptoms took approximately 1 week to resolve. He decided to come in the ED for further evaluation and treatment . 12/08 patient is alert and oriented and states that his nausea and vomiting is better. Last emesis at 3 AM today. We will start on clear liquids and advance as tolerated. Lab results reviewed. Blood cultures results pending. Has a low-grade temp of 99.2 denies chest pain, shortness of breath, fever or chills. Denies abdominal pain or dysuria. 12/09 patient is alert and oriented. Complains of persistent nausea and vomiting. Also complains of nonexertional chest pain across the chest. Denies fever or chills. Denies shortness of breath or exertional chest pain. Lab results reviewed 12/11. He is still having nausea. Plan for EGD per GI today. If negative, he will need GES or HIDA. Hospitalist Physical - Physical exam Narrative exam: VITAL SIGNS: Reviewed. GENERAL: Awake HEAD: No signs of head trauma. EYES: Pupils are equal. Extraocular motions intact. MOUTH: Oropharynx is normal. NECK: No adenopathy, no JVD. CHEST: Chest with diminished breath sounds bilaterally. No wheezes, rales, or rhonchi. CARDIAC: normal S1 and S2, without murmurs, gallops, or rubs. ABDOMEN: Soft, non tender and non distended. No rebound or guarding, and no masses palpated. Bowel Sounds normal. MUSCULOSKELETAL: No edema NEUROLOGIC EXAM: Alert and oriented x3. No focal neurologic deficits SKIN: No obvious lesions - Constitutional Vitals: Temp Pulse Resp BP Pulse Ox 98.0 F 63 18 147/99 100 12/11/20 04:59 12/11/20 04:59 12/11/20 04:59 12/11/20 04:59 12/11/20 04:59 Results - Labs CBC & Chem 7: 12/10/20 05:21 12/11/20 05:46 Labs: Laboratory Last Values WBC 14.9 K/mm3 (4.5-11.0) H 12/10/20 05:21 RBC 4.43 M/mm3 (3.65-5.03) 12/10/20 05:21 Hgb 13.9 gm/dl (11.8-15.2) 12/10/20 05:21 Hct 40.3 % (35.5-45.6) 12/10/20 05:21 MCV 91 fl (84-94) 12/10/20 05:21 MCH 32 pg (28-32) 12/10/20 05:21 MCHC 35 % (32-34) H 12/10/20 05:21 RDW 12.2 % (13.2-15.2) L 12/10/20 05:21 Plt Count 295 K/mm3 (140-440) 12/10/20 05:21 Lymph % (Auto) 10.0 % (13.4-35.0) L 12/09/20 05:12 [place] % (Auto) 8.1 % (0.0-7.3) H 12/09/20 05:12 Eos % (Auto) 0.0 % (0.0-4.3) 12/09/20 05:12 Baso % (Auto) 0.2 % (0.0-1.8) 12/09/20 05:12 Lymph # (Auto) 1.5 K/mm3 (1.2-5.4) 12/09/20 05:12 [place] # (Auto) 1.2 K/mm3 (0.0-0.8) H 12/09/20 05:12 Eos # (Auto) 0.0 K/mm3 (0.0-0.4) 12/09/20 05:12 Baso # (Auto) 0.0 K/mm3 (0.0-0.1) 12/09/20 05:12 Seg Neutrophils % 81.7 % (40.0-70.0) H 12/09/20 05:12 Seg Neutrophils # 12.2 K/mm3 (1.8-7.7) H 12/09/20 05:12 Sodium 135 mmol/L (137-145) L 12/11/20 05:46 Potassium 3.2 mmol/L (3.6-5.0) L 12/11/20 05:46 Chloride 98.1 mmol/L (98-107) 12/11/20 05:46 Carbon Dioxide 27 mmol/L (22-30) 12/11/20 05:46 Anion Gap 13 mmol/L 12/11/20 05:46 BUN 8 mg/dL (9-20) L 12/11/20 05:46 Creatinine 1.0 mg/dL (0.8-1.3) 12/11/20 05:46 Estimated GFR > 60 ml/min 12/11/20 05:46 BUN/Creatinine Ratio 8 % 12/11/20 05:46 Glucose 111 mg/dL (75-100) H 12/11/20 05:46 Hemoglobin A1c 4.4 % (4-6) 12/07/20 23:11 Lactic Acid 1.70 mmol/L (0.7-2.0) 12/09/20 05:12 Calcium 8.2 mg/dL (8.4-10.2) L 12/11/20 05:46 Magnesium 1.40 mg/dL (1.7-2.3) L 12/10/20 05:21 Total Bilirubin 0.90 mg/dL (0.1-1.2) 12/07/20 12:59 AST 26 units/L (5-40) 12/07/20 12:59 ALT 21 units/L (7-56) 12/07/20 12:59 Alkaline Phosphatase 70 units/L (35-129) 12/07/20 12:59 Total Protein 7.6 g/dL (6.3-8.2) 12/07/20 12:59 Albumin 4.7 g/dL (3.9-5) 12/07/20 12:59 Albumin/Globulin Ratio 1.6 % 12/07/20 12:59 Lipase 16 units/L (13-60) 12/07/20 12:59 Procalcitonin < 0.05 ng/mL (<0.15) 12/08/20 15:14 Urine Color Yellow (Yellow) 12/07/20 Unknown Urine Turbidity Clear (Clear) 12/07/20 Unknown Urine pH 6.0 (5.0-7.0) 12/07/20 Unknown Ur Specific [place] 1.020 (1.003-1.030) 12/07/20 Unknown Urine Protein <15 mg/dl mg/dL (Negative) 12/07/20 Unknown Urine Glucose (UA) Neg mg/dL (Negative) 12/07/20 Unknown Urine Ketones 20 mg/dL (Negative) 12/07/20 Unknown Urine Blood Neg (Negative) 12/07/20 Unknown Urine Nitrite Neg (Negative) 12/07/20 Unknown Urine Bilirubin Neg (Negative) 12/07/20 Unknown Urine Urobilinogen < 2.0 mg/dL (<2.0) 12/07/20 Unknown Ur Leukocyte Esterase Neg (Negative) 12/07/20 Unknown Urine WBC (Auto) 5.0 /HPF (0.0-6.0) 12/07/20 Unknown Urine RBC (Auto) 2.0 /HPF (0.0-6.0) 12/07/20 Unknown Urine Mucus 1+ /HPF 12/07/20 Unknown Microbiology: Microbiology 12/07/20 23:11 Peripheral/Venous Blood Culture - Preliminary NO GROWTH AFTER 72 HOURS 12/07/20 23:11 Peripheral/Venous Blood Culture - Preliminary NO GROWTH AFTER 72 HOURS Liang/IV: Voiding Method Toilet Active Medications - Current Medications Current Medications: Generic Name Dose Route Start Last Admin Trade Name Freq PRN Reason Stop Dose Admin Acetaminophen 650 mg 12/07/20 22:47 Acetaminophen 325 Mg Tab PO Q4H PRN Pain MILD(1-3)/Fever >100.5/JOHSI Levofloxacin/Dextrose 500 mg in 100 mls @ 100 mls/hr 12/08/20 09:00 12/10/20 10:12 Levaquin 500mg/100ml IV 12/12/20 09:59 100 mls/hr Q24H BHAVIK Administration Protocol Dextrose/Sodium Chloride 1,000 mls @ 100 mls/hr 12/08/20 17:00 12/11/20 01:05 D5/0.45ns IV 100 mls/hr DIRECT BHAVIK Administration Potassium Chloride 10 meq in 100 mls @ 100 mls/hr 12/11/20 12:00 Kcl 10meq/100ml IV 12/11/20 15:59 Q1H BHAVIK Metoclopramide HCl 10 mg 12/07/20 22:48 12/11/20 04:44 Metoclopramide 10 Mg/2 Ml Inj IV 10 mg Q6H PRN Administration Nausea And Vomiting Morphine Sulfate 2 mg 12/09/20 18:37 12/11/20 09:16 Morphine 2 Mg/1 Ml Inj IV 2 mg Q4H PRN Administration Pain, Moderate (4-6) Ondansetron HCl 4 mg 12/07/20 22:47 12/11/20 09:16 Ondansetron 4 Mg/2 Ml Inj IV 4 mg Q6H PRN Administration Nausea And Vomiting Pantoprazole Sodium 40 mg 12/10/20 10:00 12/11/20 09:16 Pantoprazole 40 Mg Inj IV 40 mg DAILY BHAVIK Administration Promethazine HCl 25 mg 12/07/20 22:48 Promethazine 25 Mg Rect Supp IN Q6H PRN N/V IF NPO AND NO IV ACCESS Sodium Chloride 10 ml 12/08/20 10:00 12/11/20 10:23 Sodium Chloride 0.9% 10 Ml Flush Syringe IV 10 ml BID BHAVIK Administration Sodium Chloride 10 ml 12/07/20 22:47 12/11/20 04:45 Sodium Chloride 0.9% 10 Ml Flush Syringe IV 10 ml PRN PRN Administration LINE FLUSH
[2020-12-11] MEDS ORDERED: SODIUM CHLORIDE 0.9% 1000 ML 1,000 ML IV SCH (12:30)
--- NOTE | 2020-12-11 13:25 | Anesthesia Consultation ---
Anesthesia Consult and Med Hx Date of service: 12/11/20 - Airway Anesthetic Teeth Evaluation: Good ROM Head & Neck: Adequate Mental/Hyoid Distance: Adequate Mallampati Class: Class III Intubation Access Assessment: Possibly Difficult - Pre-Operative Health Status ASA Pre-Surgery Classification: ASA2 Proposed Anesthetic Plan: General - Pulmonary Hx Smoking: Yes (THC) Hx Respiratory Symptoms: No - Cardiovascular System Hx Hypertension: No - Central Nervous System CVA: No - Endocrine Hx Renal Disease: No Hx Liver Disease: No Hx Insulin Dependent Diabetes: No Hx Non-Insulin Dependent Diabetes: No Hx Thyroid Disease: No - Other Systems Hx Obesity: No - Additional Comments Anesthesia Medical History Comments: abdominal pain w/ associated nausea/vomiting scheduled for EGD
--- NOTE | 2020-12-11 13:25 | Anesthesia Day of Surgery ---
Anesthesia Day of Surgery - Day of Surgery Patient Examined: Yes Patient H&P Reviewed: Yes Patient is NPO: Yes
[2020-12-11] MEDS ORDERED: LIDOCAINE MPF (2%) 20 MG/1 ML VIAL 5 ML ONE (13:49)
[2020-12-11] MEDS ORDERED: propofoL 200 MG/20 ML VIAL IV ONE (13:50)
[2020-12-11] MEDS ORDERED: fentaNYL 100 MCG/2 ML INJ ONE (13:50)
[2020-12-11] MEDS ORDERED: dexAMETHasone 20 MG/5 ML VIAL ONE (13:52)
--- NOTE | 2020-12-11 14:24 | Operative Report ---
Operative Report Operative Report: Date:12/11/2020 Pre procedure diagnosis:nausea/vomiting, abdominal pain Post procedure diagnosis:gastritis, esophagitis Procedure: Esophagogastroduodenoscopy with biopsies Endoscopist: Rambo Romo MD Medications: Per anesthesia- see separate records for details Complications:none Estimated blood loss: None After careful discussion of the nature and purpose of the procedure, details of the technique, risks, benefits and alternatives, the patient gave consent. The patient was placed in the left lateral decubitus position and medicated by anesthesia- see separate records for details. The tip of the olympus video upper scope was passed per orum under direct view through the mouth and into the esophagus, stomach and duodenum. The scope was advanced to the secondportion of the duodenum without difficulty. The second portion of the duodenumwasnormal. The bulb revealed normal findings. The scope was withdrawn back into the stomach and the stomach gently insufflated with air. The antrum revealed diffuse edematous erythematous mucosa. No ulcers identified. There was a small amount of retained fluid and food debris. Biopsies obtained from the antrum and gastric body. The scope was then retroflexed and partially withdrawn to inspect the proximal stomach. The cardia, fundus and body werenormal. The scope was then withdrawn in the forward view. The EG junction was at 40 cm. The distal esophagus revealedmild LA grade A esophagitis without bleeding. There were mild scattered white plaques in the mid esophagus. Biopsies obtained from distal and mid esophagus body.The proximal esophagus was normal. The procedure was well tolerated and the patient was observed in the GI recovery unit. IMPRESSION: 1. Antral gastritis. Biopsies obtained. 2. Small amount of retained fluid and food debris in the stomach. 3. Mild distal esophagitis. Biopsies obtained. Plan: 1. Resume diet with clear liquids 2. Continue with protonix PO bid. 3. Add sucralfate TID. 4. Continue with antiemetics prn. Consider adding ativan prn. 5. If persistent nausea/vomiting/abdominal pain, consider HIDA scan. Rambo Romo MD (Jenny) [facility]
--- NOTE | 2020-12-11 16:14 | Post Anesthesia Evaluation ---
- Post Anesthesia Evaluation Patient Participated: Yes Airway Patent: Yes Stable Respiratory Function: Yes Nausea/Vomiting: No Temp > 96.8F: Yes Pain Manageable: Yes Adequeate Hydration: Yes Anesthesia Complications: No
[2020-12-12 06:04] LABS: Basophils % (Auto) 0.1 % (0.0-1.8); Hematocrit 34.8 % (35.5-45.6); Hemoglobin 12.5 gm/dl (11.8-15.2); Lymphocytes # (Auto) 1.5 K/mm3 (1.2-5.4); Lymphocytes % (Auto) 12.8 % (13.4-35.0); Mean Corpuscular HGB Conc 36 % (32-34); Mean Corpuscular Volume 90 fl (84-94); Monocytes # (Auto) 1.1 K/mm3 (0.0-0.8); Platelet Count 279 K/mm3 (140-440); Red Blood Count 3.86 M/mm3 (3.65-5.03); Red Cell Distribution Width 12.2 % (13.2-15.2)
[2020-12-12 06:31] LABS: Alanine Aminotransferase 11 units/L (7-56); Albumin 3.8 g/dL (3.9-5); BUN/Creatinine Ratio 12; Blood Urea Nitrogen 12 mg/dL (9-20); Calcium 8.7 mg/dL (8.4-10.2); Hemolysis Index 5
[2020-12-12 09:01] VITALS: BP 115/67
[2020-12-12] MEDS: PANTOPRAZOLE 40 MG INJ IV SCH (10:23)
--- NOTE | 2020-12-12 12:34 | Gastroenterology Progress Note ---
Assessment and Plan This is a 35 yo male with recreational marijauna use admitted on 12/07/2020 for intractable nausea/vomiting x 2 days. GI consulted for N/V. # Nausea/vomiting - ddx including marijauna induced hyperemesis, cyclic vomiting syndrome, gastrop aresis, GERD vs biliary etiology. - normal lipase and LFTs - s/p EGD showing mild distal esophagitis and gastritis. No GOO. - tolerating diet and no nausea/vomiting today. Rec - cont with reglan and zofran prn - cont with protonix - advance diet as tolerated - advised to quit marijauna - ok for discharge per GI standpoint if tolerating diet. - will sign off. please call with questions. - Patient Problems (1) Abdominal pain Current Visit: Yes Status: Acute Qualifiers: Abdominal location: generalized Qualified Code(s): R10.84 - Generalized abdominal pain (2) Nausea & vomiting Current Visit: Yes Status: Acute Qualifiers: Vomiting Intractability: intractable Subjective Date of service: 12/12/20 Interval history: Patient doing better. No nausea/vomiting. Tolerating soft diet. Objective - Constitutional Vitals: Temp Pulse Resp BP Pulse Ox 98.8 F 77 18 115/67 95 12/12/20 08:53 12/12/20 08:53 12/12/20 08:53 12/12/20 08:53 12/12/20 08:53 General appearance: no acute distress - EENT ENT: hearing intact - Respiratory Respiratory effort: normal - Cardiovascular Rhythm: regular Heart Sounds: Present: S1 & S2 - Gastrointestinal General gastrointestinal: Present: soft, non-tender, non-distended - Integumentary Integumentary: Present: clear, warm - Neurologic Neurological: alert and oriented x3 - Labs CBC & Chem 7: 12/12/20 05:06 12/12/20 05:06 Labs: Laboratory Results - last 24 hr 12/12/20 12/12/20 05:06 05:06 WBC 11.9 H RBC 3.86 Hgb 12.5 Hct 34.8 L MCV 90 MCH 32 MCHC 36 H RDW 12.2 L Plt Count 279 Lymph % (Auto) 12.8 L Hinds % (Auto) 9.0 H Eos % (Auto) 0.0 Baso % (Auto) 0.1 Lymph # (Auto) 1.5 Hinds # (Auto) 1.1 H Eos # (Auto) 0.0 Baso # (Auto) 0.0 Seg Neutrophils % 78.1 H Seg Neutrophils # 9.3 H Sodium 135 L Potassium 4.1 D Chloride 100.4 Carbon Dioxide 25 Anion Gap 14 BUN 12 Creatinine 1.0 Estimated GFR > 60 BUN/Creatinine Ratio 12 Glucose 99 Calcium 8.7 Total Bilirubin 0.90 AST 11 ALT 11 Alkaline Phosphatase 55 Total Protein 6.3 Albumin 3.8 L Albumin/Globulin Ratio 1.5
[2020-12-12] MEDS: SUCRALFATE 1 GM TAB PO SCH ×2 (12:52→17:50)
--- NOTE | 2020-12-12 13:30 | Post Anesthesia Evaluation ---
- Post Anesthesia Evaluation Patient Participated: Yes Airway Patent: Yes Stable Respiratory Function: Yes Nausea/Vomiting: No Temp > 96.8F: Yes Pain Manageable: Yes Adequeate Hydration: Yes Anesthesia Complications: No Block Receding Appropriately: Not Applicable Patient on Ventilator: No
--- NOTE | 2020-12-12 14:55 | Discharge Summary ---
Providers - Providers Date of Admission: 12/09/20 14:50 Date of discharge: 12/12/20 Attending physician: JAYLA GANDARA 12/09/20 12:16 Consult to Physician [CONS] Routine Comment: Consulting Provider: HARLEY PENDLETON Physician Instructions: Reason For Exam: Intractable vomiting Primary care physician: MOLDING SANDER Hospitalization Condition: Stable Hospital course: This is a 35 yo male with recreational marijauna use admitted on 12/07/2020 for intractable nausea/vomiting x 2 days with normal lipase and LFTs. GI consulted for N/V. s/p EGD showing mild distal esophagitis and gastritis. Patient was placed on Reglan and Zofran as needed as needed. Also placed on PPI with Protonix. Advance diet as tolerated, advised to quit marijuana. Patient was cleared for discharge by GI and he was tolerating diet. He was recommended to follow-up with GI in 3 to 4 weeks. 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 Acute abdominal pain due to esophagitis and gastritis. History of marijuana use counseled for cessation. Leukocytosis with SIRS likely from acute gastritis. Hyperglycemia stress-induced A1c 4.4. Esophagitis and gastritis Time spent for discharge: 40 minutes Core Measure Documentation - Palliative Care Palliative Care/ Comfort Measures: Not Applicable - Core Measures Any of the following diagnoses?: none Exam - Physical Exam Narrative exam: VITAL SIGNS: Reviewed. GENERAL: Awake HEAD: No signs of head trauma. EYES: Pupils are equal. Extraocular motions intact. MOUTH: Oropharynx is normal. NECK: No adenopathy, no JVD. CHEST: Chest with diminished breath sounds bilaterally. No wheezes, rales, or rhonchi. CARDIAC: normal S1 and S2, without murmurs, gallops, or rubs. ABDOMEN: Soft, non tender and non distended. No rebound or guarding, and no masses palpated. Bowel Sounds normal. MUSCULOSKELETAL: No edema NEUROLOGIC EXAM: Alert and oriented x3. No focal neurologic deficits SKIN: No obvious lesions - Constitutional Vitals: Temp Pulse Resp BP Pulse Ox 98.8 F 78 18 115/67 95 12/12/20 08:53 12/12/20 12:00 12/12/20 08:53 12/12/20 08:53 12/12/20 08:53 Plan Activity: advance as tolerated Weight Bearing Status: Weight Bear as Tolerated Diet: advance as tolerated Additional Instructions: Remain abstinent from marijuana. Continue Protonix daily for esophagitis and gastritis. Follow-up with GI in 3 to 4 weeks Follow up with: PRIMARY CARE, [Primary Care Provider] - 2-3 Days HARLEY PENDLETON MD [Staff Physician] - 7 Days Prescriptions: Sucralfate [Carafate] 1 gm PO AC #30 tablet Pantoprazole [Protonix TAB] 40 mg PO BIDAC #60 tablet Ondansetron [Zofran Odt] 4 mg PO Q8HR PRN #15 tab.rapdis PRN Reason: Nausea
[2020-12-12] MEDS ORDERED: PANTOPRAZOLE 40 MG TAB PO SCH (16:30)
== END 2020-12-12 19:43 | disposition home or self-care (01) | DRG 392 ==
LOC: ED 10:08 → 3A 22:43 → 4A 23:05 → OBSVTOIN 12-09 14:50
PROVIDERS: ADMIT Internal Medicine Geriatric Medicine; ATTEND Internal Medicine
PROC: 0DB38ZX Excision of Lower Esophagus, Via Natural or Artificial Opening Endoscopic, Diagnostic (ICD-10-PCS; principal; 2020-12-11)
PROC: 0DB68ZX Excision of Stomach, Via Natural or Artificial Opening Endoscopic, Diagnostic (ICD-10-PCS; 2020-12-11)
PROC: 0DB28ZX Excision of Middle Esophagus, Via Natural or Artificial Opening Endoscopic, Diagnostic (ICD-10-PCS; 2020-12-11)
DX: K29.00 Acute gastritis without bleeding (principal); R65.10 Systemic inflammatory response syndrome (SIRS) of non-infectious origin without acute organ dysfunction; K92.0 Hematemesis; K20.90 Esophagitis, unspecified without bleeding; K31.84 Gastroparesis; R73.9 Hyperglycemia, unspecified; Z60.2 Problems related to living alone; Z88.5 Allergy status to narcotic agent; Z79.899 Other long term (current) drug therapy; Z71.51 Drug abuse counseling and surveillance of drug abuser
CPT/HCPCS: 36415; 74019; 80048; 80053; 81001; 82140; 83036; 83690; 83735; 84145; 85025; 85027; 87040; 88305; 88342; 96365; G0378; C9113; J1100; J1630; J1956; J2270; J2405; J2704; J2765; J3010; J3475; J3480; J7030